=== PATIENT | male | born 1955 | race Caucasian/White ===

== ENCOUNTER 2017-07-21 06:00 | Day surgery (SDC) | payer OTHER ==
[2017-07-21] MEDS ORDERED: Bupivacaine HCl 0.5% PF (10 ml) Inj ONE ×2 (07:33)
[2017-07-21] MEDS ORDERED: Lidocaine 1% Inj (20ml) ONE (07:33)
[2017-07-21] MEDS ORDERED: Propofol 10 mg/ml Inj (20 ML) ONE (08:20)
[2017-07-21] MEDS ORDERED: Midazolam 2 MG/2 ML VIAL ONE (08:42)
[2017-07-21] MEDS: ceFAZolin IV 2 gm in Dextrose 2 GM/50 ML BAG IVPB ONE ×2 (08:54→09:06)
[2017-07-21] MEDS ORDERED: Dexamethasone 4 mg/1 ml ONE (09:14)
[2017-07-21] MEDS ORDERED: Oxycodone/Acetaminophen 5/325 mg Tab PO PRN ×2 (10:05)
--- NOTE | 2017-07-21 10:10 | PCM.SURG1 ---
Surgeon's Initial Post Op Note - Surgeon's Notes Surgeon: Dr. Katja Hooper, DPM Range Mechanic: Aren Hassan PGY2 Type of Anesthesia: IV Sedation, Local (9 mL of 1:1 mixure of 0.5% marcaine plain to 1% lidocaine plain) Anesthesia Administered By: Dr. 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 Specimen/Specimens Removed: none Estimated Blood Loss: EBL {In ML}: 5 Blood Products Given: N/A Drains Used: No Drains Post-Op Condition: Good Date of Surgery/Procedure: 07/21/17 Time of Surgery/Procedure: 10:11
[2017-07-21] MEDS ORDERED: Lactated Ringer's 1,000 ML IV SCH (10:15)
[2017-07-21 11:25] VITALS: BP 116/87; PULSE 64; RESP 18; TEMP 97; O2SAT 100
[2017-07-21] MEDS ORDERED: Lidocaine Hydrochloride 5 ML INJ ONE (11:38)
--- NOTE | 2017-07-21 13:02 | RAD ---
PROCEDURE: Right Foot Radiographs. HISTORY: s/p right foot surgery COMPARISON: Bilateral foot radiographs performed 07/23/16 FINDINGS: BONES: Mild degenerative changes. No acute displaced fracture. JOINTS: No dislocation. SOFT TISSUES: Unremarkable. No evidence of radiopaque foreign body. OTHER FINDINGS: None. IMPRESSION: No acute findings.
--- NOTE | 2017-07-24 05:55 | OP ---
PROCEDURE DATE: 07/21/2017 PREOPERATIVE DIAGNOSES: 1. Right foot fourth digit exostosis at level of proximal interphalangeal joint. 2. Right foot fifth digit exostosis at level of proximal interphalangeal joint. POSTOPERATIVE DIAGNOSES: 1. Right foot fourth digit exostosis at level of proximal interphalangeal joint. 2. Right foot fifth digit exostosis at level of proximal interphalangeal joint. PROCEDURES PERFORMED: 1. Right foot fourth digit proximal interphalangeal joint arthroplasty. 2. Right foot fifth digit proximal interphalangeal joint arthroplasty. SURGEON: Katja Hooper DPM CONSULTING SYSTEMS ENGINEER: Mitzi Hassan DPM TYPE OF ANESTHESIA: MAC IV sedation with local. ANESTHESIA ADMINISTERED BY: Dr. Lofton INDICATION: The patient is a 61-year-old male with the above stated diagnoses. The patient has exhausted all conservative treatment options and is now in need of surgical intervention. The patient signed the surgical consent after careful explanation of risks, benefits, complications, and potential alternatives to the postsurgical procedures. No guarantees were either given nor implied. The patient's n.p.o. status was confirmed prior to the patient being taken to the operating room. PREPARATION: The patient's n.p.o. status was confirmed prior to the patient being taken to the operating room. The patient was brought to the operating room and placed on the operating room table in a supine position. A well-padded pneumatic tourniquet was applied in the supramalleolar position to the right ankle and 250 mmHg inflation once the procedure done. Once IV sedation was confirmed to have been achieved, the patient received a total of 9 mL of 1:1 mixture of 0.5% Marcaine plain to 1% lidocaine plain in a local block type fashion to the right foot. Once local anesthetic was confirmed to have been achieved, the patient's right foot was then prepped and draped in the usual sterile manner. Right foot was exsanguinated, tourniquet was inflated and the procedure began. PROCEDURES 1 AND 2: Right foot fourth and fifth digit arthroplasty: The following two procedures were performed in sequence with no deviations in steps between the respective digits. Attention was then directed to the dorsal aspect of the respective digit, one approximately 2 cm linear longitudinal incision was made overlying the 4th digit proximal interphalangeal joint. An approximately 2 cm linear proximal-lateral to distal-medial semi- elliptical incision was made overlying the 5th digit proximal interphalangeal joint. Using a #15 blade, this incision was extended down to subcutaneous tissue layers with care being taken to identify, avoid, and retract all vital neurovascular structures. All bleeders were cauterized and ligated as needed. At this time, a transverse tenotomy capsulotomy was performed overlying the TIPJ. The head of the respective proximal phalanx was then freed of the capsular ligament attachment. Lateral 4th proximal phaylnx noted to be hypertrophied. Medial 5th proximal phalynx head noted to be hypertrophied with valgus angulation of articular surface. Next. utilizing an oscillating saw, the head of the respective proximal phalanx was then dissected and passed off the operative field. Surgical site was then flushed with copious amounts of sterile saline. Respective extensor tendons was then reapproximated and sutured using 4 -0 Vicryl in a simple suture-type fashion. Skin was reapproximated using 4-0 Prolene in a simple suture-type fashion. POSTOPERATIVE CONDITION: The patient tolerated the anesthesia and procedure well, was escorted to the recovery room with vital signs stable and neurovascular status intact to the right foot. The patient had no complaints or complications. OSMAN Cain DPM HE
== END 2017-07-21 12:46 | disposition home or self-care (01) ==
LOC: C.SDS 06:00
PROVIDERS: ATTEND Podiatrist Foot & Ankle Surgery
DX: M89.8X7 Other specified disorders of bone, ankle and foot (principal); E11.9 Type 2 diabetes mellitus without complications; I10 Essential (primary) hypertension; N40.0 Benign prostatic hyperplasia without lower urinary tract symptoms; M1A.9XX0 Chronic gout, unspecified, without tophus (tophi); Z79.84 Long term (current) use of oral hypoglycemic drugs; Z79.899 Other long term (current) drug therapy; L84 Corns and callosities
CPT/HCPCS: 28160; 28272; 73630; 82948; 97116; 97161; G8978; G8979; G8980; J0690; J1100; J2250; J2704; J3010

== ENCOUNTER 2017-12-12 06:57 | Emergency (ER) | payer OTHER ==
[2017-12-12 07:07] VITALS: PULSE 71; TEMP 98.5
--- NOTE | 2017-12-12 07:42 | C.PDOC ---
History Of Present Illness 62 y/o male with history of DM, HTN and prostate enlargement presents to ED with c/o near syncope episode and numbness to hands at 5am today while at work. Patient states he was standing and felt like he was going to fall. Patient states he has not been compliant with medications secondary to running out and not having insurance to pay for medicine. Patient denies headache, nausea, vomiting or any other complaints at this time. Time Seen by Provider: 12/12/17 07:26 Chief Complaint (Nursing): Dizziness/Lightheaded History Per: Patient History/Exam Limitations: no limitations Onset/Duration Of Symptoms: Hrs Current Symptoms Are (Timing): Still Present Activity At Onset Of Symptoms: Standing Past Medical History Reviewed: Historical Data, Nursing Documentation, Vital Signs Vital Signs: Last Vital Signs Temp 98.5 F 12/12/17 09:33 Pulse 71 12/12/17 09:33 Resp 16 12/12/17 09:33 BP 134/84 12/12/17 09:33 Pulse Ox 99 12/12/17 09:33 - Medical History PMH: Diabetes, HTN Surgical History: No Surg Hx Family History: States: No Known Family Hx - Social History Hx Tobacco Use: No Hx Alcohol Use: Yes Hx Substance Use: No - Immunization History Hx Tetanus Toxoid Vaccination: No Hx Influenza Vaccination: No Hx Pneumococcal Vaccination: No Review Of Systems Cardiovascular: Negative for: Chest Pain Respiratory: Negative for: Shortness of Breath Gastrointestinal: Negative for: Nausea, Vomiting Neurological: Positive for: Numbness (to hands), Dizziness. Negative for: Headache Physical Exam - Physical Exam Appears: Non-toxic, No Acute Distress Skin: Warm, Dry, No Rash Head: Atraumatic, Normacephalic Eye(s): bilateral: Normal Inspection (no nystagmus) Oral Mucosa: Moist Neck: Normal ROM, Supple Cardiovascular: Rhythm Regular Respiratory: Normal Breath Sounds, No Rales, No Rhonchi, No Wheezing Gastrointestinal/Abdominal: Soft, No Tenderness, No Guarding, No Rebound Neurological/Psych: Oriented x3, Normal Speech, Normal Cognition, Normal Motor, Normal Sensation ED Course And Treatment - Laboratory Results Result Diagrams: 12/12/17 07:45 12/12/17 07:45 ECG: Interpreted By Me, Viewed By Me ECG Rhythm: Sinus Rhythm Rate From EC (BPM) O2 Sat by Pulse Oximetry: 98 (RA) Pulse Ox Interpretation: Normal Progress Note: Head CT, CXR, UA, EKG, Blood work ordered. Case was d/w who accepted patient to his service to [facility] for observation Disposition - Disposition Disposition: AGAINST MEDICAL ADVICE Disposition Time: 09:23 Condition: FAIR Instructions: Leaving Against Medical Advice, Near Fainting Forms: [facility] (Persian) - Clinical Impression Clinical Impression: Near syncope - PA / BEAN WEIGHER / Resident Statement MD/DO has reviewed & agrees with the documentation as recorded. - Scribe Statement The provider has reviewed the documentation as recorded by the Scribe Brenda Correia All medical record entries made by the Larryibsami were at my direction and personally dictated by me. I have reviewed the chart and agree that the record accurately reflects my personal performance of the history, physical exam, medical decision making, and the department course for this patient. I have also personally directed, reviewed, and agree with the discharge instructions and disposition. Decision To Admit - Pt Status Changed To: Hospital Disposition Of: Observation - . Bed Request Type: Telemetry Admitting Physician: Bradley Mckinney Patient Diagnosis: Near syncope
[2017-12-12 07:57] LABS: EOS # 0.1 K/uL (0.0-0.7); EOS % 2.2 % (0.0-4.0); HEMOGLOBIN 13.5 g/dL (12.0-18.0); LYMPH # 1.1 K/uL (1.0-4.3); LYMPH % 26.2 % (20.0-40.0); MEAN CELL VOLUME 88.8 fL (80.0-94.0); MEAN CORPUSCULAR HGB CONC 34.9 g/dL (33.0-37.0); MEAN PLATELET VOLUME 9.3 fL (7.2-11.7); MONO # 0.4 K/uL (0.0-0.8); MONO % 8.5 % (0.0-10.0); NEUT # 2.6 K/uL (1.8-7.0); NEUT % 62.1 % (50.0-75.0); NRBC % 0.1 % (0.0-2.0); RBC 4.34 Mil/uL (4.40-5.90); RED CELL DISTRIBUTION WIDTH 12.8 % (11.5-14.5); WHITE BLOOD COUNT 4.1 K/uL (4.8-10.8)
[2017-12-12 08:02] LABS: PROTHROMBIN TIME 11.1 SECONDS (9.7-12.2)
[2017-12-12 08:22] LABS: ALB/GLOB RATIO 1.4 (1.0-2.1); ALBUMIN 4.7 g/dL (3.5-5.0); ALT/SGPT 30 U/L (21-72); AST/SGOT 30 U/L (17-59); BLOOD UREA NITROGEN 20 mg/dL (9-20); CALCIUM 9.4 mg/dl (8.6-10.4); GFR AFRICAN-AMERICAN > 60; GFR NON-AFRICAN AMERICAN > 60
[2017-12-12 08:24] LABS: URINE BILIRUBIN NEGATIVE (NEGATIVE); URINE CLARITY Clear (Clear); URINE COLOR Yellow (YELLOW); URINE GLUCOSE (UA) NORMAL (Normal); URINE LEUKOCYTE ESTERASE NEG Leu/uL (Negative); URINE PROTEIN NEGATIVE (NEGATIVE); URINE UROBILINOGEN NORMAL mg/dL (0.2-1.0)
[2017-12-12 08:31] LABS: CK-MB 4.57 ng/mL (0.0-3.38)
[2017-12-12 08:41] LABS: URINE BLOOD TRACE-LYSED (NEGATIVE)
--- NOTE | 2017-12-12 08:46 | CT ---
PROCEDURE: CT HEAD WITHOUT CONTRAST. HISTORY: near syncope COMPARISON: None available. TECHNIQUE: Axial computed tomography images were obtained through the head/brain without intravenous contrast. Radiation dose: Total exam DLP = 916 mGy-cm. This CT exam was performed using one or more of the following dose reduction techniques: Automated exposure control, adjustment of the mA and/or kV according to patient size, and/or use of iterative reconstruction technique. FINDINGS: HEMORRHAGE: No intracranial hemorrhage. BRAIN: No mass effect or edema. Scattered focal lucencies in the subcortical and periventricular white matter suggestive for chronic microvascular ischemic change. VENTRICLES: Unremarkable. No hydrocephalus. CALVARIUM: Unremarkable. PARANASAL SINUSES: Prominent 2.8 x 1.9 centimeter mucosal retention cyst and or polyp within the right maxillary sinus. Mild mucosal thickening of the ethmoid air cells. MASTOID AIR CELLS: Unremarkable as visualized. No inflammatory changes. OTHER FINDINGS: None. IMPRESSION: No acute intracranial abnormality. Chronic microvascular ischemic changes. Prominent 2.8 centimeter mucosal retention cyst and or polyp in the right maxillary sinus. If symptoms persists, consider correlation with MRI.
--- NOTE | 2017-12-12 09:07 | RAD ---
Chest x-ray single frontal view History: Syncope. Comparison: None available. Findings: No focal infiltrate or effusion. Heart size within normal limits. Impression: No focal infiltrate or effusion.
[2017-12-12 09:47] VITALS: BP 134/84; RESP 16
[2017-12-12] MEDS ORDERED: Sodium Chloride 0.9% 1,000 ML IV SCH (10:45)
[2017-12-12] MEDS ORDERED: (Novolin R) Insulin Human Regular 100 units/ml vial SC SCH (11:30)
[2017-12-12 13:25] VITALS: O2SAT 98
--- NOTE | 2017-12-12 16:17 | CP.PCM.HP ---
History of Present Illness - History of Present Illness History of Present Illness: HPI: Patient is a 62 year old with a history of HTN, DM, BPH, and gout, who presents with complaints lightheadedness and numbness in both hands. He was at work and moving boxes when he started to feel lightheaded and his hands felt numb. He immediately came to the hospital. He has had 3 similar episodes in 2016 , 2017, and in July 2017. He is noncompliant with his medications- does not take any medications for 3-4 months because "they're expensive". Patient currently feels better and only has hand tingling. He does say the hand tingling feels like his chronic neuropathic pains that he has from DM in his hands and feet. Patient denies chest pain, abdominal pain, nausea, vomiting, fevers, headache, dizziness, vision changes, dysuria, constipation, and diarrhea. PMD: NHC at [facility] PMHx: HTN, DM, BPH, and gout SurgHx: left foot surgery 08/03; left rotator cuff repair 08/02; hemorroidectomy FamHx: MOther- DM; Father- CVA, DM SocHx: denies tobacco and drug use; admits to social drinking every 2 weeks Allergies: NKDA Medications: does not take any medications currently. Present on Admission - Present on Admission Any Indicators Present on Admission: No Review of Systems - Constitutional Constitutional: Headache. absent: Fever - EENT Eyes: absent: Change in Vision Ears: Dizziness - Cardiovascular Cardiovascular: absent: Chest Pain, Dyspnea, Leg Edema, Palpitations, Rapid Heart Rate - Respiratory Respiratory: absent: Cough, Dyspnea - Gastrointestinal Gastrointestinal: absent: Abdominal Pain, Constipation, Diarrhea, Nausea, Vomiting - Genitourinary Genitourinary: absent: Dysuria - Neurological Neurological: Dizziness (with movements) Past Patient History - Past Medical History & Family History Past Medical History?: Yes - Past Social History Smoking Status: Never Smoked - CARDIAC Hx Hypertension: Yes - PULMONARY Hx Respiratory Disorders: No - NEUROLOGICAL Hx Neurological Disorder: No - HEENT Hx HEENT Problems: No - RENAL Hx Chronic Kidney Disease: No - ENDOCRINE/METABOLIC Hx Endocrine Disorders: Yes Hx Diabetes Mellitus Type 2: Yes - HEMATOLOGICAL/ONCOLOGICAL Hx Blood Disorders: No - INTEGUMENTARY Hx Dermatological Problems: No - MUSCULOSKELETAL/RHEUMATOLOGICAL Hx Musculoskeletal Disorders: Yes Hx Gout: Yes Other/Comment: HX: RIGHT SHOULDER TENDON INJURY. HX: RIGHT FOOT OSTEOPHYTE - GASTROINTESTINAL Hx Gastrointestinal Disorders: Yes Hx Hemorrhoids: Yes - GENITOURINARY/GYNECOLOGICAL Hx Genitourinary Disorders: Yes Hx Prostate Problems: Yes - PSYCHIATRIC Hx Substance Use: No - SURGICAL HISTORY Hx Surgeries: Yes Hx Musculoskeletal Surgery: Yes (R foot) Other/Comment: HX; HEMORRHOIDECTOMY 1984. HX: REPAIR RIGHT SHOULDER TENDON ( 2015) - ANESTHESIA Hx Anesthesia: Yes Hx Anesthesia Reactions: No Hx Malignant Hyperthermia: No Meds Allergies/Adverse Reactions: Allergies Allergy/AdvReac Type Severity Reaction Status Date / Time No Known Allergies Allergy Verified 12/12/17 07:07 Physical Exam - Constitutional Appears: No Acute Distress - Head Exam Head Exam: ATRAUMATIC, NORMOCEPHALIC - Eye Exam Eye Exam: EOMI, PERRL - ENT Exam ENT Exam: Mucous Membranes Dry - Respiratory Exam Respiratory Exam: Clear to Auscultation Bilateral, NORMAL BREATHING PATTERN. absent: Rales, Rhonchi, Wheezes, Respiratory Distress - Cardiovascular Exam Cardiovascular Exam: REGULAR RHYTHM, +S1, +S2 - GI/Abdominal Exam GI & Abdominal Exam: Normal Bowel Sounds, Soft. absent: Distended, Firm, Tenderness - Extremities Exam Extremities exam: Positive for: normal inspection - Neurological Exam Neurological exam: Alert, Oriented x3 - Psychiatric Exam Psychiatric exam: Normal Affect, Normal Mood - Skin Skin Exam: Dry, Intact, Normal Color, Warm Results - Vital Signs Recent Vital Signs: Last Vital Signs Temp 98.5 F 12/12/17 09:33 Pulse 71 12/12/17 09:33 Resp 16 12/12/17 09:33 BP 134/84 12/12/17 09:33 Pulse Ox 98 12/12/17 13:24 - Labs Result Diagrams: 12/12/17 07:45 12/12/17 07:45 Labs: Laboratory Results - last 24 hr 12/12/17 12/12/17 12/12/17 07:10 07:45 07:45 WBC 4.1 L RBC 4.34 L Hgb 13.5 Hct 38.5 MCV 88.8 D MCH 31.0 MCHC 34.9 RDW 12.8 Plt Count 194 MPV 9.3 Neut % (Auto) 62.1 Lymph % (Auto) 26.2 [place] % (Auto) 8.5 Eos % (Auto) 2.2 Baso % (Auto) 1.0 Neut # (Auto) 2.6 Lymph # (Auto) 1.1 [place] # (Auto) 0.4 Eos # (Auto) 0.1 Baso # (Auto) 0.0 PT 11.1 INR 1.0 APTT 30 Sodium Potassium Chloride Carbon Dioxide Anion Gap BUN Creatinine Est GFR ( Amer) Est GFR (Non-Af Amer) POC Glucose (mg/dL) 125 H Random Glucose Calcium Total Bilirubin AST ALT Alkaline Phosphatase Total Creatine Kinase CK-MB (Mass) Troponin I Total Protein Albumin Globulin Albumin/Globulin Ratio Urine Color Urine Clarity Urine pH Ur Specific [place] Urine Protein Urine Glucose (UA) Urine Ketones Urine Blood Urine Nitrate Urine Bilirubin Urine Urobilinogen Ur Leukocyte Esterase Urine RBC (Auto) 12/12/17 12/12/17 07:45 07:45 WBC RBC Hgb Hct MCV MCH MCHC RDW Plt Count MPV Neut % (Auto) Lymph % (Auto) [place] % (Auto) Eos % (Auto) Baso % (Auto) Neut # (Auto) Lymph # (Auto) [place] # (Auto) Eos # (Auto) Baso # (Auto) PT INR APTT Sodium 146 Potassium 4.4 Chloride 106 Carbon Dioxide 25 Anion Gap 19 BUN 20 Creatinine 0.8 Est GFR ( Amer) > 60 Est GFR (Non-Af Amer) > 60 POC Glucose (mg/dL) Random Glucose 132 H Calcium 9.4 Total Bilirubin 0.8 AST 30 ALT 30 Alkaline Phosphatase 108 Total Creatine Kinase 255 H CK-MB (Mass) 4.57 H Troponin I < 0.0120 Total Protein 8.0 Albumin 4.7 Globulin 3.3 Albumin/Globulin Ratio 1.4 Urine Color Yellow Urine Clarity Clear Urine pH 5.0 Ur Specific [place] 1.019 Urine Protein Negative Urine Glucose (UA) Normal Urine Ketones Negative Urine Blood Trace-lysed Urine Nitrate Negative Urine Bilirubin Negative Urine Urobilinogen Normal Ur Leukocyte Esterase Neg Urine RBC (Auto) 1 Assessment & Plan - Assessment and Plan (Free Text) Assessment: After history and physical, discussed admission with viktort. Patient decided to AMA. Signed form, witnessed and signed by nurse at bedside. Patient understand risks by AMAing. Discharge papers given by nurse and IV removed.
--- NOTE | 2017-12-12 16:43 | CP.PCM.DIS ---
Provider - Provider Time Spent in preparation of Discharge (in minutes): 15 Hospital Course - Lab Results Lab Results: Most Recent Lab Values WBC 4.1 K/uL (4.8-10.8) L 12/12/17 07:45 RBC 4.34 Mil/uL (4.40-5.90) L 12/12/17 07:45 Hgb 13.5 g/dL (12.0-18.0) 12/12/17 07:45 Hct 38.5 % (35.0-51.0) 12/12/17 07:45 MCV 88.8 fL (80.0-94.0) D 12/12/17 07:45 MCH 31.0 pg (27.0-31.0) 12/12/17 07:45 MCHC 34.9 g/dL (33.0-37.0) 12/12/17 07:45 RDW 12.8 % (11.5-14.5) 12/12/17 07:45 Plt Count 194 K/uL (130-400) 12/12/17 07:45 MPV 9.3 fL (7.2-11.7) 12/12/17 07:45 Neut % (Auto) 62.1 % (50.0-75.0) 12/12/17 07:45 Lymph % (Auto) 26.2 % (20.0-40.0) 12/12/17 07:45 [place] % (Auto) 8.5 % (0.0-10.0) 12/12/17 07:45 Eos % (Auto) 2.2 % (0.0-4.0) 12/12/17 07:45 Baso % (Auto) 1.0 % (0.0-2.0) 12/12/17 07:45 Neut # (Auto) 2.6 K/uL (1.8-7.0) 12/12/17 07:45 Lymph # (Auto) 1.1 K/uL (1.0-4.3) 12/12/17 07:45 [place] # (Auto) 0.4 K/uL (0.0-0.8) 12/12/17 07:45 Eos # (Auto) 0.1 K/uL (0.0-0.7) 12/12/17 07:45 Baso # (Auto) 0.0 K/uL (0.0-0.2) 12/12/17 07:45 PT 11.1 SECONDS (9.7-12.2) 12/12/17 07:45 INR 1.0 12/12/17 07:45 APTT 30 SECONDS (21-34) 12/12/17 07:45 Sodium 146 mmol/L (132-148) 12/12/17 07:45 Potassium 4.4 mmol/L (3.6-5.2) 12/12/17 07:45 Chloride 106 mmol/L (98-107) 12/12/17 07:45 Carbon Dioxide 25 mmol/L (22-30) 12/12/17 07:45 Anion Gap 19 (10-20) 12/12/17 07:45 BUN 20 mg/dL (9-20) 12/12/17 07:45 Creatinine 0.8 mg/dL (0.8-1.5) 12/12/17 07:45 Est GFR ( Amer) > 60 12/12/17 07:45 Est GFR (Non-Af Amer) > 60 12/12/17 07:45 POC Glucose (mg/dL) 125 mg/dL (65-110) H 12/12/17 07:10 Random Glucose 132 mg/dL (75-110) H 12/12/17 07:45 Calcium 9.4 mg/dl (8.6-10.4) 12/12/17 07:45 Total Bilirubin 0.8 mg/dL (0.2-1.3) 12/12/17 07:45 AST 30 U/L (17-59) 12/12/17 07:45 ALT 30 U/L (21-72) 12/12/17 07:45 Alkaline Phosphatase 108 U/L (38-126) 12/12/17 07:45 Total Creatine Kinase 255 U/L (55-170) H 12/12/17 07:45 CK-MB (Mass) 4.57 ng/mL (0.0-3.38) H 12/12/17 07:45 Troponin I < 0.0120 ng/mL (0.00-0.120) 12/12/17 07:45 Total Protein 8.0 g/dL (6.3-8.3) 12/12/17 07:45 Albumin 4.7 g/dL (3.5-5.0) 12/12/17 07:45 Globulin 3.3 gm/dL (2.2-3.9) 12/12/17 07:45 Albumin/Globulin Ratio 1.4 (1.0-2.1) 12/12/17 07:45 Urine Color Yellow (YELLOW) 12/12/17 07:45 Urine Clarity Clear (Clear) 12/12/17 07:45 Urine pH 5.0 (5.0-8.0) 12/12/17 07:45 Ur Specific [place] 1.019 (1.003-1.030) 12/12/17 07:45 Urine Protein Negative mg/dL (NEGATIVE) 12/12/17 07:45 Urine Glucose (UA) Normal mg/dL (Normal) 12/12/17 07:45 Urine Ketones Negative mg/dL (NEGATIVE) 12/12/17 07:45 Urine Blood Trace-lysed (NEGATIVE) 12/12/17 07:45 Urine Nitrate Negative (NEGATIVE) 12/12/17 07:45 Urine Bilirubin Negative (NEGATIVE) 12/12/17 07:45 Urine Urobilinogen Normal mg/dL (0.2-1.0) 12/12/17 07:45 Ur Leukocyte Esterase Neg Shawn/uL (Negative) 12/12/17 07:45 Urine RBC (Auto) 1 /hpf (0-3) 12/12/17 07:45 - Hospital Course Hospital Course: HPI: Patient is a 62 year old with a history of HTN, DM, BPH, and gout, who presents with complaints lightheadedness and numbness in both hands. He was at work and moving boxes when he started to feel lightheaded and his hands felt numb. He immediately came to the hospital. He has had 3 similar episodes in 2016 , 2017, and in July 2017. He is noncompliant with his medications- does not take any medications for 3-4 months because "they're expensive". Patient currently feels better and only has hand tingling. He does say the hand tingling feels like his chronic neuropathic pains that he has from DM in his hands and feet. Patient denies chest pain, abdominal pain, nausea, vomiting, fevers, headache, dizziness, vision changes, dysuria, constipation, and diarrhea. PMD: NHC at [facility] PMHx: HTN, DM, BPH, and gout SurgHx: left foot surgery 08/03; left rotator cuff repair 08/02; hemorroidectomy FamHx: MOther- DM; Father- CVA, DM SocHx: denies tobacco and drug use; admits to social drinking every 2 weeks Allergies: NKDA Medications: does not take any medications currently. After history and physical, discussed admission with patient. Patient decided to AMA. Signed form, witnessed and signed by nurse at bedside. Patient understand risks by AMAing. Discharge papers given by nurse and IV removed. Discharge Exam - Additional Findings Additional findings: - Constitutional Appears: No Acute Distress - Head Exam Head Exam: ATRAUMATIC, NORMOCEPHALIC - Eye Exam Eye Exam: EOMI, PERRL - ENT Exam ENT Exam: Mucous Membranes Dry - Respiratory Exam Respiratory Exam: Clear to Auscultation Bilateral, NORMAL BREATHING PATTERN. absent: Rales, Rhonchi, Wheezes, Respiratory Distress - Cardiovascular Exam Cardiovascular Exam: REGULAR RHYTHM, +S1, +S2 - GI/Abdominal Exam GI & Abdominal Exam: Normal Bowel Sounds, Soft. absent: Distended, Firm, Tenderness - Extremities Exam Extremities exam: Positive for: normal inspection - Neurological Exam Neurological exam: Alert, Oriented x3 - Psychiatric Exam Psychiatric exam: Normal Affect, Normal Mood - Skin Skin Exam: Dry, Intact, Normal Color, Warm Discharge Plan - Follow Up Plan Condition: FAIR Disposition: AGAINST MEDICAL ADVICE Instructions: Leaving Against Medical Advice, Near Fainting
--- NOTE | 2017-12-15 17:53 | CARD ---
APPROVED REPORT EKG Measurement Heart [id number] <Conclusion> Normal sinus rhythm Normal ECG
== END 2017-12-12 11:25 | disposition left against medical advice (07) ==
LOC: C.ER 06:57 → C.9E 09:22 → UNDOADMOB 09:22 → C.9E 10:06 → C.6T 10:06 → C.ER 11:25
DX: R55 Syncope and collapse (principal)